=== PATIENT | male | born 1970 | race Caucasian/White ===

== ENCOUNTER 2021-04-17 21:31 | Inpatient (IN) ==
[2021-04-17] MEDS ORDERED: 0.9 % Sodium Chloride 500 ML IVC ONE (21:53)
[2021-04-17 22:55] LABS: Basophils # 0.1 K/mcL (0.0-0.2); Basophils % 0.3 %; Eosinophils % 0.3 %; Hematocrit 41.3 % (37.5-50.1); Hemoglobin 13.9 g/dL (12.9-16.9); Immature Granulocytes % 0.8 % (0-4); Lymphocytes # 1.2 K/mcL (0.6-4.6); Mean Corpuscular HGB Conc 33.7 g/dL (31.6-35.5); Mean Corpuscular Hemoglobin 28.7 pg (28.0-33.3); Mean Corpuscular Volume 85.3 fL (83.0-100.0); Mean Platelet Volume 9.1 fL (9.4-12.4); Monocytes % 6.5 %; Neutrophils # 13.1 K/mcL (1.6-8.9); Platelet Count 357 K/mcL (140-400); Red Blood Count 4.84 M/mcL (4.19-5.50); Red Cell Distribution Width 12.3 % (11.5-14.5); Segmented Neutrophils % 84.1 %; White Blood Count 15.6 K/mcL (4.3-11.1)
[2021-04-17] MEDS ORDERED: Vancomycin 2,000 MG/520 ML IV.SOLN IVPB ONE (23:00)
[2021-04-17] MEDS ORDERED: Piperacillin/Tazobactam 3.375 GM in 0.9 % Sodium Chloride Mini Bag 100 ML IVPB ONE (23:06)
[2021-04-17 23:19] LABS: BUN/Creatinine Ratio 24 (6-26); Blood Urea Nitrogen 20 mg/dL (6-20); Calcium 9.6 mg/dL (8.6-10.3); Carbon Dioxide 26 mEq/L (23-29); Chloride 90 mEq/L (98-107); Glucose 502 mg/dL (70-105); Osmolality,Calculated 291 (280-300); Potassium 4.6 mEq/L (3.5-5.1); Sodium 128 mEq/L (136-145); eGFR For African Americans > 60 (> 60); eGFR For Non-African Americans > 60 (> 60)
[2021-04-17] MEDS ORDERED: 0.9 % Sodium Chloride 1,000 ML IVC ONE (23:19)
[2021-04-17 23:53] LABS: C-Reactive Protein > 300 mg/L (Less than 10)
[2021-04-18] MEDS ORDERED: Insulin Human Regular 10 UNIT in 0.9 % Sodium Chloride 10 ML IV ONE (00:12)
[2021-04-18] MEDS ORDERED: Ondansetron 4 MG/2 ML VIAL IVP PRN (01:22)
[2021-04-18] MEDS ORDERED: Naloxone 0.4 MG/ML INJ IVP PRN (01:22)
[2021-04-18] MEDS: Acetaminophen 325 MG TABLET PO PRN ×2 (01:59→20:55)
[2021-04-18] MEDS: Melatonin 3 MG TABLET PO PRN (01:59)
[2021-04-18] MEDS: 0.9 % Sodium Chloride 1,000 ML IVC SCH ×2 (02:00→09:57)
[2021-04-18] MEDS ORDERED: Dextrose Gel 15 GM/37.5 ML TUBE PO PRN ×2 (03:52)
[2021-04-18] MEDS ORDERED: *HR* Dextrose 50 % in Water (Vial) 50 ML VIAL IVP PRN (03:52)
[2021-04-18] MEDS ORDERED: D5% in Water 1,000 ML IVC PRN (03:52)
[2021-04-18 06:28] LABS: Basophils % 0.3 %; Eosinophils # 0.1 K/mcL (0.0-0.6); Eosinophils % 0.4 %; Hematocrit 37.5 % (37.5-50.1); Hemoglobin 12.4 g/dL (12.9-16.9); Immature Granulocytes % 0.7 % (0-4); Lymphocytes # 1.5 K/mcL (0.6-4.6); Lymphocytes % 11.6 %; Mean Corpuscular HGB Conc 33.1 g/dL (31.6-35.5); Mean Corpuscular Hemoglobin 28.1 pg (28.0-33.3); Mean Corpuscular Volume 84.8 fL (83.0-100.0); Mean Platelet Volume 8.7 fL (9.4-12.4); Monocytes # 1.2 K/mcL (0.0-1.3); Monocytes % 9.3 %; Neutrophils # 10.2 K/mcL (1.6-8.9); Platelet Count 332 K/mcL (140-400); Red Blood Count 4.42 M/mcL (4.19-5.50); Red Cell Distribution Width 12.3 % (11.5-14.5); Segmented Neutrophils % 77.7 %; White Blood Count 13.2 K/mcL (4.3-11.1)
[2021-04-18] MEDS: Insulin LISPRO 300 UNITS/3 ML VIAL SUBQ SCH ×4 (06:33→16:52)
[2021-04-18 07:05] LABS: Alanine Aminotransferase 4 Units/L (7-52); Albumin 3.4 g/dL (3.5-5.7); Alkaline Phosphatase 89 Units/L (34-104); Aspartate Amino Transferase 7 Units/L (13-39); BUN/Creatinine Ratio 23 (6-26); Bilirubin,Total 0.6 mg/dL (0.3-1.0); Blood Urea Nitrogen 18 mg/dL (6-20); Carbon Dioxide 23 mEq/L (23-29); Chloride 96 mEq/L (98-107); Globulin 3.5 g/dL (2.4-3.5); Glucose 335 mg/dL (70-105); Magnesium 1.9 mg/dL (1.6-2.6); Osmolality,Calculated 283 (280-300); Phosphorous 2.7 mg/dL (2.7-4.5); Sodium 129 mEq/L (136-145); Total Protein 6.9 g/dL (6.4-8.9); eGFR For African Americans > 60 (> 60); eGFR For Non-African Americans > 60 (> 60)
[2021-04-18] MEDS: Piperacillin/Tazobactam 3.375 GM in 0.9 % Sodium Chloride Mini Bag 100 ML IVPB SCH ×2 (09:31→15:47)
[2021-04-18 10:49] LABS: Calcium 8.5 mg/dL (8.6-10.3)
[2021-04-18] MEDS ORDERED: Vancomycin 2,000 MG/520 ML IV.SOLN IVPB ONE (12:00)
[2021-04-18] MEDS ORDERED: Morphine Sulfate 2 MG/ML SYRINGE IVP ONE (12:22)
[2021-04-18] MEDS ORDERED: Gadolinium Contrast Agent (WT Based) IV PRN (14:51)
[2021-04-18 15:39] LABS: Estimated Average Glucose 298 mg/dl
[2021-04-18] MEDS: Metoprolol XL (24 HR) Succ 50 MG TAB.ER.24H PO SCH (15:47)
[2021-04-18] MEDS ORDERED: GADOBUTROL 30 MMOL/30 ML VIAL IVP ONE (16:27)
[2021-04-18] MEDS ORDERED: Insulin LISPRO 300 UNITS/3 ML VIAL SUBQ SCH ×2 (16:30)
[2021-04-18 19:20] LABS: Acinetobacter baumannii by PCR Not Detected (Not Detect); Candida albicans by PCR Not Detected (Not Detect); Candida glabrata by PCR Not Detected (Not Detect); Candida krusei by PCR Not Detected (Not Detect); Candida parapsilosis by PCR Not Detected (Not Detect); Candida tropicalis by PCR Not Detected (Not Detect); Enterobacter cloacae Cmplx PCR Not Detected (Not Detect); Enterobacteriaceae by PCR Not Detected (Not Detect); Enterococcus by PCR Not Detected (Not Detect); Escherichia coli by PCR Not Detected (Not Detect); Klebsiella oxytoca by PCR Not Detected (Not Detect); Klebsiella pneumoniae by PCR Not Detected (Not Detect); Proteus by PCR Not Detected (Not Detect); Pseudomonas aeruginosa by PCR Not Detected (Not Detect); Serratia marcescens by PCR Not Detected (Not Detect); Staphylococcus aureus by PCR Not Detected (Not Detect); Staphylococcus by PCR DETECTED (Not Detect); Streptococcus agalactiae(B)PCR Not Detected (Not Detect); Streptococcus by PCR Not Detected (Not Detect); Streptococcus pneumoniae PCR Not Detected (Not Detect); Streptococcus pyogenes (A) PCR Not Detected (Not Detect); mecA Methicillin-Resist Gene DETECTED (Not Detect)
[2021-04-18] MEDS: Pregabalin 50 MG CAPSULE PO SCH (20:56)
[2021-04-18] MEDS ORDERED: Insulin DETEMIR 100 UNIT/ML X5UNITS SUBQ SCH (21:00)
[2021-04-18] MEDS: Budesonide/Formoterol 80/4.5 1 PUFF INH IH SCH (21:48)
[2021-04-19] MEDS: Piperacillin/Tazobactam 3.375 GM in 0.9 % Sodium Chloride Mini Bag 100 ML IVPB SCH ×4 (01:16→23:15)
[2021-04-19] MEDS: Vancomycin 1,500 MG/265 ML IV.SOLN IVPB SCH ×3 (01:17→23:15)
[2021-04-19] MEDS: Insulin LISPRO 300 UNITS/3 ML VIAL SUBQ SCH ×5 (01:17→22:16)
[2021-04-19 05:51] LABS: Hemoglobin 12.9 g/dL (12.9-16.9); Mean Corpuscular HGB Conc 33.1 g/dL (31.6-35.5); Mean Corpuscular Hemoglobin 28.4 pg (28.0-33.3); Mean Corpuscular Volume 85.9 fL (83.0-100.0); Platelet Count 274 K/mcL (140-400); Red Blood Count 4.54 M/mcL (4.19-5.50); Red Cell Distribution Width 12.3 % (11.5-14.5); White Blood Count 11.7 K/mcL (4.3-11.1)
[2021-04-19 07:53] LABS: BUN/Creatinine Ratio 25 (6-26); Blood Urea Nitrogen 22 mg/dL (6-20); Calcium 8.3 mg/dL (8.6-10.3); Carbon Dioxide 23 mEq/L (23-29); Chloride 100 mEq/L (98-107); Glucose 326 mg/dL (70-105); Osmolality,Calculated 288 (280-300); Potassium 3.9 mEq/L (3.5-5.1); Sodium 131 mEq/L (136-145); eGFR For African Americans > 60 (> 60); eGFR For Non-African Americans > 60 (> 60)
[2021-04-19] MEDS: Pregabalin 50 MG CAPSULE PO SCH ×2 (08:31→20:21)
[2021-04-19] MEDS: Metoprolol XL (24 HR) Succ 50 MG TAB.ER.24H PO SCH (08:31)
[2021-04-19] MEDS: Loratadine 10 MG TABLET PO SCH (08:32)
[2021-04-19] MEDS: amLODIPine 5 MG TABLET PO SCH (08:32)
[2021-04-19] MEDS: Insulin DETEMIR 100 UNIT/ML X5UNITS SUBQ SCH ×2 (09:03→20:22)
[2021-04-19] MEDS ORDERED: Perflutren Lipid Microsphere 1.3 ML in 0.9 % Sodium Chloride 8.7 ML IVP PRN (09:24)
[2021-04-19] MEDS ORDERED: *HR* Propofol 200 MG/20 ML VIAL IVP ONE ×2 (09:49→12:26)
[2021-04-19] MEDS ORDERED: Ondansetron 4 MG/2 ML VIAL ONE (09:49)
[2021-04-19] MEDS ORDERED: Lidocaine -MPF 2% 2 ML VIAL ONE (09:49)
[2021-04-19] MEDS ORDERED: *HR* FentaNYL (PF) 100 MCG/2 ML VIAL ONE (09:51)
[2021-04-19] MEDS: Budesonide/Formoterol 80/4.5 1 PUFF INH IH SCH ×2 (10:31→20:05)
[2021-04-19] MEDS ORDERED: *HR* Succinylcholine 200 MG/10 ML VIAL IVP ONE (10:56)
[2021-04-19] MEDS ORDERED: Lidocaine HCL 4 ML Topical Solution (Laryng-O-Jet Kit Sterile Pak) TP ONE (11:04)
[2021-04-19] MEDS ORDERED: Vancomycin 1,000 MG, 0.9 % Sodium Chloride 1,000 ML IR ONE (11:10)
[2021-04-19] MEDS: Acetaminophen 325 MG TABLET PO PRN (20:22)
[2021-04-20 02:12] LABS: Hematocrit 32.2 % (37.5-50.1); Mean Corpuscular HGB Conc 33.5 g/dL (31.6-35.5); Mean Corpuscular Hemoglobin 28.6 pg (28.0-33.3); Mean Corpuscular Volume 85.4 fL (83.0-100.0); Mean Platelet Volume 8.7 fL (9.4-12.4); Platelet Count 366 K/mcL (140-400); Red Blood Count 3.77 M/mcL (4.19-5.50); Red Cell Distribution Width 12.4 % (11.5-14.5); White Blood Count 9.4 K/mcL (4.3-11.1)
[2021-04-20 02:13] LABS: Hemoglobin 10.8 g/dL (12.9-16.9)
[2021-04-20 02:28] LABS: BUN/Creatinine Ratio 26 (6-26); Blood Urea Nitrogen 23 mg/dL (6-20); Calcium 8.5 mg/dL (8.6-10.3); Carbon Dioxide 24 mEq/L (23-29); Chloride 99 mEq/L (98-107); Glucose 282 mg/dL (70-105); Osmolality,Calculated 286 (280-300); Potassium 3.7 mEq/L (3.5-5.1); Sodium 131 mEq/L (136-145); eGFR For African Americans > 60 (> 60); eGFR For Non-African Americans > 60 (> 60)
[2021-04-20] MEDS: Piperacillin/Tazobactam 3.375 GM in 0.9 % Sodium Chloride Mini Bag 100 ML IVPB SCH ×3 (08:44→23:11)
[2021-04-20] MEDS: Pregabalin 50 MG CAPSULE PO SCH ×2 (08:45→20:17)
[2021-04-20] MEDS: Insulin LISPRO 300 UNITS/3 ML VIAL SUBQ SCH ×4 (08:45→20:18)
[2021-04-20] MEDS: Acetaminophen 325 MG TABLET PO PRN (08:45)
[2021-04-20] MEDS: Metoprolol XL (24 HR) Succ 50 MG TAB.ER.24H PO SCH (08:45)
[2021-04-20] MEDS: amLODIPine 5 MG TABLET PO SCH (08:46)
[2021-04-20] MEDS: Loratadine 10 MG TABLET PO SCH (08:46)
[2021-04-20] MEDS: Insulin DETEMIR 100 UNIT/ML X5UNITS SUBQ SCH ×2 (10:08→20:17)
[2021-04-20] MEDS: Vancomycin 1,500 MG/265 ML IV.SOLN IVPB SCH ×2 (12:05→23:11)
[2021-04-20] MEDS: Budesonide/Formoterol 80/4.5 1 PUFF INH IH SCH ×2 (12:06→23:18)
[2021-04-20] MEDS: Sennosides 8.6 MG TABLET PO SCH (16:02)
[2021-04-21] MEDS: Acetaminophen 325 MG TABLET PO PRN ×2 (04:11→10:30)
[2021-04-21 07:47] LABS: Hematocrit 34.2 % (37.5-50.1); Hemoglobin 10.9 g/dL (12.9-16.9); Mean Corpuscular HGB Conc 31.9 g/dL (31.6-35.5); Mean Corpuscular Hemoglobin 27.9 pg (28.0-33.3); Mean Corpuscular Volume 87.5 fL (83.0-100.0); Mean Platelet Volume 8.6 fL (9.4-12.4); Platelet Count 401 K/mcL (140-400); Red Blood Count 3.91 M/mcL (4.19-5.50); Red Cell Distribution Width 12.6 % (11.5-14.5); White Blood Count 7.8 K/mcL (4.3-11.1)
[2021-04-21] MEDS: Budesonide/Formoterol 80/4.5 1 PUFF INH IH SCH ×2 (08:05→20:06)
[2021-04-21 08:29] LABS: BUN/Creatinine Ratio 26 (6-26); Blood Urea Nitrogen 21 mg/dL (6-20); Calcium 8.9 mg/dL (8.6-10.3); Carbon Dioxide 25 mEq/L (23-29); Chloride 101 mEq/L (98-107); Glucose 306 mg/dL (70-105); Osmolality,Calculated 293 (280-300); Potassium 4.1 mEq/L (3.5-5.1); Sodium 134 mEq/L (136-145); eGFR For African Americans > 60 (> 60); eGFR For Non-African Americans > 60 (> 60)
[2021-04-21] MEDS: Metoprolol XL (24 HR) Succ 50 MG TAB.ER.24H PO SCH (08:43)
[2021-04-21] MEDS: Sennosides 8.6 MG TABLET PO SCH (08:43)
[2021-04-21] MEDS: Pregabalin 50 MG CAPSULE PO SCH ×2 (08:43→20:08)
[2021-04-21] MEDS: Piperacillin/Tazobactam 3.375 GM in 0.9 % Sodium Chloride Mini Bag 100 ML IVPB SCH ×3 (08:44→23:47)
[2021-04-21] MEDS: Loratadine 10 MG TABLET PO SCH (08:44)
[2021-04-21] MEDS: amLODIPine 5 MG TABLET PO SCH (08:44)
[2021-04-21] MEDS: Insulin LISPRO 300 UNITS/3 ML VIAL SUBQ SCH ×4 (08:51→20:09)
[2021-04-21] MEDS: Insulin DETEMIR 100 UNIT/ML X5UNITS SUBQ SCH ×2 (10:30→20:08)
[2021-04-21] MEDS: Vancomycin 1,500 MG/265 ML IV.SOLN IVPB SCH ×2 (13:28→23:46)
[2021-04-22] MEDS: Budesonide/Formoterol 80/4.5 1 PUFF INH IH SCH ×2 (07:48→21:39)
[2021-04-22] MEDS ORDERED: Benzonatate 100 MG CAPSULE PO PRN (08:59)
[2021-04-22] MEDS: Metoprolol XL (24 HR) Succ 50 MG TAB.ER.24H PO SCH (09:30)
[2021-04-22] MEDS: amLODIPine 5 MG TABLET PO SCH (09:30)
[2021-04-22] MEDS: Loratadine 10 MG TABLET PO SCH (09:30)
[2021-04-22] MEDS: Sennosides 8.6 MG TABLET PO SCH (09:31)
[2021-04-22] MEDS: Insulin DETEMIR 100 UNIT/ML X5UNITS SUBQ SCH ×2 (09:32→20:37)
[2021-04-22] MEDS: Insulin LISPRO 300 UNITS/3 ML VIAL SUBQ SCH ×4 (09:32→20:37)
[2021-04-22] MEDS: Piperacillin/Tazobactam 3.375 GM in 0.9 % Sodium Chloride Mini Bag 100 ML IVPB SCH ×2 (09:32→16:58)
[2021-04-22] MEDS: Pregabalin 50 MG CAPSULE PO SCH ×2 (09:32→20:37)
[2021-04-22 12:04] LABS: Adenovirus Not Detected (Not Detect); Bordetella Pertussis Not Detected (Not Detect); Chlamydophila pneumoniae Not Detected (Not Detect); Coronavirus 229E Not Detected (Not Detect); Coronavirus HKU1 Not Detected (Not Detect); Coronavirus NL63 Not Detected (Not Detect); Coronavirus OC43 Not Detected (Not Detect); Human Metapneumovirus Not Detected (Not Detect); Human Rhinovirus/Enterovirus Not Detected (Not Detect); Influenza A Subtype 2009 H1 Not Detected (Not Detect); Influenza B Not Detected (Not Detect); Mycoplasma pneumoniae Not Detected (Not Detect); Parainfluenza Virus 1 Not Detected (Not Detect); Parainfluenza Virus 2 Not Detected (Not Detect); Parainfluenza Virus 3 Not Detected (Not Detect); Parainfluenza Virus 4 Not Detected (Not Detect); Respiratory Syncytial Virus Not Detected (Not Detect); SARS-CoV-2 Not Detected (Not Detect)
[2021-04-22 12:04] LABS: Hematocrit 38.4 % (37.5-50.1); Hemoglobin 12.4 g/dL (12.9-16.9); Mean Corpuscular HGB Conc 32.3 g/dL (31.6-35.5); Mean Corpuscular Hemoglobin 28.2 pg (28.0-33.3); Mean Corpuscular Volume 87.3 fL (83.0-100.0); Mean Platelet Volume 8.2 fL (9.4-12.4); Platelet Count 466 K/mcL (140-400); Red Cell Distribution Width 12.7 % (11.5-14.5); White Blood Count 8.3 K/mcL (4.3-11.1)
[2021-04-22 12:57] LABS: BUN/Creatinine Ratio 21 (6-26); Blood Urea Nitrogen 22 mg/dL (6-20); Calcium 9.4 mg/dL (8.6-10.3); Carbon Dioxide 25 mEq/L (23-29); Chloride 100 mEq/L (98-107); Glucose 293 mg/dL (70-105); Osmolality,Calculated 292 (280-300); Potassium 4.4 mEq/L (3.5-5.1); Sodium 134 mEq/L (136-145); eGFR For African Americans > 60 (> 60); eGFR For Non-African Americans > 60 (> 60)
[2021-04-22] MEDS ORDERED: polyethylene glycoL 3350 17 GM POWD.PACK PO ONE (18:00)
[2021-04-22] MEDS: Melatonin 3 MG TABLET PO PRN (20:38)
[2021-04-23] MEDS: Acetaminophen 325 MG TABLET PO PRN ×2 (04:07→20:37)
[2021-04-23 05:25] LABS: Hematocrit 33.1 % (37.5-50.1); Hemoglobin 10.7 g/dL (12.9-16.9); Mean Corpuscular HGB Conc 32.3 g/dL (31.6-35.5); Mean Corpuscular Hemoglobin 28.2 pg (28.0-33.3); Mean Corpuscular Volume 87.1 fL (83.0-100.0); Mean Platelet Volume 8.5 fL (9.4-12.4); Platelet Count 424 K/mcL (140-400); Red Cell Distribution Width 12.7 % (11.5-14.5); White Blood Count 8.8 K/mcL (4.3-11.1)
[2021-04-23 05:27] LABS: BUN/Creatinine Ratio 23 (6-26); Blood Urea Nitrogen 23 mg/dL (6-20); Calcium 8.8 mg/dL (8.6-10.3); Carbon Dioxide 26 mEq/L (23-29); Chloride 100 mEq/L (98-107); Glucose 270 mg/dL (70-105); Osmolality,Calculated 291 (280-300); Potassium 4.4 mEq/L (3.5-5.1); Sodium 134 mEq/L (136-145); eGFR For African Americans > 60 (> 60); eGFR For Non-African Americans > 60 (> 60)
[2021-04-23] MEDS: Budesonide/Formoterol 80/4.5 1 PUFF INH IH SCH ×2 (08:41→21:37)
[2021-04-23] MEDS: Insulin LISPRO 300 UNITS/3 ML VIAL SUBQ SCH ×4 (08:56→20:38)
[2021-04-23] MEDS: Loratadine 10 MG TABLET PO SCH (08:57)
[2021-04-23] MEDS: Sennosides 8.6 MG TABLET PO SCH (08:57)
[2021-04-23] MEDS: amLODIPine 5 MG TABLET PO SCH (08:57)
[2021-04-23] MEDS: Pregabalin 50 MG CAPSULE PO SCH ×2 (08:57→20:36)
[2021-04-23] MEDS: Piperacillin/Tazobactam 3.375 GM in 0.9 % Sodium Chloride Mini Bag 100 ML IVPB SCH ×3 (08:58→16:33)
[2021-04-23] MEDS: Metoprolol XL (24 HR) Succ 50 MG TAB.ER.24H PO SCH (08:58)
[2021-04-23] MEDS: Insulin DETEMIR 100 UNIT/ML X5UNITS SUBQ SCH ×2 (09:04→20:38)
[2021-04-23] MEDS: *HR* Heparin 5,000 UNIT/ML VIAL SQ SCH (16:33)
[2021-04-23] MEDS: Melatonin 3 MG TABLET PO PRN (20:37)
[2021-04-24] MEDS: Piperacillin/Tazobactam 3.375 GM in 0.9 % Sodium Chloride Mini Bag 100 ML IVPB SCH ×4 (00:06→23:25)
[2021-04-24] MEDS: *HR* Heparin 5,000 UNIT/ML VIAL SQ SCH ×2 (05:31→18:18)
[2021-04-24 07:28] LABS: Basophils # 0.1 K/mcL (0.0-0.2); Basophils % 0.8 %; Eosinophils # 0.3 K/mcL (0.0-0.6); Hematocrit 39.2 % (37.5-50.1); Hemoglobin 12.9 g/dL (12.9-16.9); Immature Granulocytes % 1.8 % (0-4); Lymphocytes # 1.5 K/mcL (0.6-4.6); Lymphocytes % 16.7 %; Mean Corpuscular HGB Conc 32.9 g/dL (31.6-35.5); Mean Corpuscular Hemoglobin 28.6 pg (28.0-33.3); Mean Corpuscular Volume 86.9 fL (83.0-100.0); Mean Platelet Volume 8.3 fL (9.4-12.4); Monocytes # 0.6 K/mcL (0.0-1.3); Monocytes % 6.8 %; Neutrophils # 6.2 K/mcL (1.6-8.9); Platelet Count 395 K/mcL (140-400); Red Blood Count 4.51 M/mcL (4.19-5.50); Segmented Neutrophils % 70.9 %; White Blood Count 8.8 K/mcL (4.3-11.1)
[2021-04-24 07:46] LABS: BUN/Creatinine Ratio 21 (6-26); Blood Urea Nitrogen 18 mg/dL (6-20); Carbon Dioxide 29 mEq/L (23-29); Chloride 99 mEq/L (98-107); Glucose 240 mg/dL (70-105); Osmolality,Calculated 290 (280-300); Potassium 4.4 mEq/L (3.5-5.1); Sodium 135 mEq/L (136-145); eGFR For African Americans > 60 (> 60); eGFR For Non-African Americans > 60 (> 60)
[2021-04-24] MEDS: Budesonide/Formoterol 80/4.5 1 PUFF INH IH SCH ×2 (08:22→20:44)
[2021-04-24] MEDS: Insulin LISPRO 300 UNITS/3 ML VIAL SUBQ SCH ×4 (08:40→20:24)
[2021-04-24] MEDS: Pregabalin 50 MG CAPSULE PO SCH ×2 (08:41→20:25)
[2021-04-24] MEDS: Metoprolol XL (24 HR) Succ 50 MG TAB.ER.24H PO SCH (08:41)
[2021-04-24] MEDS: Sennosides 8.6 MG TABLET PO SCH (08:41)
[2021-04-24] MEDS: amLODIPine 5 MG TABLET PO SCH (08:41)
[2021-04-24] MEDS: Loratadine 10 MG TABLET PO SCH (08:42)
[2021-04-24 10:23] LABS: Calcium 9.2 mg/dL (8.6-10.3)
[2021-04-24] MEDS: Insulin DETEMIR 100 UNIT/ML X5UNITS SUBQ SCH ×2 (11:10→20:25)
[2021-04-24] MEDS: Acetaminophen 325 MG TABLET PO PRN (20:28)
[2021-04-25 05:18] LABS: BUN/Creatinine Ratio 20 (6-26); Blood Urea Nitrogen 19 mg/dL (6-20); Calcium 9.6 mg/dL (8.6-10.3); Carbon Dioxide 31 mEq/L (23-29); Chloride 98 mEq/L (98-107); Glucose 169 mg/dL (70-105); Osmolality,Calculated 286 (280-300); Potassium 4.2 mEq/L (3.5-5.1); Sodium 135 mEq/L (136-145); eGFR For African Americans > 60 (> 60); eGFR For Non-African Americans > 60 (> 60)
[2021-04-25] MEDS: *HR* Heparin 5,000 UNIT/ML VIAL SQ SCH ×2 (05:24→17:07)
[2021-04-25] MEDS: Acetaminophen 325 MG TABLET PO PRN (05:25)
[2021-04-25] MEDS: Budesonide/Formoterol 80/4.5 1 PUFF INH IH SCH ×2 (08:01→20:16)
[2021-04-25] MEDS: amLODIPine 5 MG TABLET PO SCH (09:16)
[2021-04-25] MEDS: Piperacillin/Tazobactam 3.375 GM in 0.9 % Sodium Chloride Mini Bag 100 ML IVPB SCH ×2 (09:16→19:28)
[2021-04-25] MEDS: Loratadine 10 MG TABLET PO SCH (09:16)
[2021-04-25] MEDS: Sennosides 8.6 MG TABLET PO SCH (09:16)
[2021-04-25] MEDS: Metoprolol XL (24 HR) Succ 50 MG TAB.ER.24H PO SCH (09:16)
[2021-04-25] MEDS: Pregabalin 50 MG CAPSULE PO SCH ×2 (09:16→21:21)
[2021-04-25] MEDS: Insulin LISPRO 300 UNITS/3 ML VIAL SUBQ SCH ×4 (09:17→21:21)
[2021-04-25] MEDS: Insulin DETEMIR 100 UNIT/ML X5UNITS SUBQ SCH ×2 (09:19→21:23)
[2021-04-25] MEDS ORDERED: Vancomycin 1,500 MG/265 ML IV.SOLN IVPB SCH (18:00)
[2021-04-25] MEDS: Vancomycin 1,250 MG/262.5 ML IV.SOLN IVPB SCH (19:37)
[2021-04-25] MEDS ORDERED: *HR* Labetalol 20 MG/4 ML SYRINGE IVP ONE (20:41)
[2021-04-25] MEDS ORDERED: *HR* Metoprolol 5 MG/5 ML VIAL IVP ONE (23:22)
[2021-04-26] MEDS: Vancomycin 1,250 MG/262.5 ML IV.SOLN IVPB SCH ×2 (05:06→16:45)
[2021-04-26] MEDS: *HR* Heparin 5,000 UNIT/ML VIAL SQ SCH ×2 (05:08→16:46)
[2021-04-26] MEDS: Budesonide/Formoterol 80/4.5 1 PUFF INH IH SCH ×2 (07:22→21:55)
[2021-04-26] MEDS: Insulin LISPRO 300 UNITS/3 ML VIAL SUBQ SCH ×4 (07:55→21:53)
[2021-04-26] MEDS: amLODIPine 5 MG TABLET PO SCH (07:56)
[2021-04-26] MEDS: Pregabalin 50 MG CAPSULE PO SCH ×2 (07:56→22:02)
[2021-04-26] MEDS: Loratadine 10 MG TABLET PO SCH (07:57)
[2021-04-26] MEDS: Metoprolol XL (24 HR) Succ 50 MG TAB.ER.24H PO SCH (07:57)
[2021-04-26] MEDS: Sennosides 8.6 MG TABLET PO SCH (07:57)
[2021-04-26 09:02] LABS: Hematocrit 39.7 % (37.5-50.1); Hemoglobin 12.9 g/dL (12.9-16.9); Mean Corpuscular HGB Conc 32.5 g/dL (31.6-35.5); Mean Corpuscular Hemoglobin 27.9 pg (28.0-33.3); Mean Corpuscular Volume 85.9 fL (83.0-100.0); Mean Platelet Volume 8.2 fL (9.4-12.4); Platelet Count 407 K/mcL (140-400); Red Blood Count 4.62 M/mcL (4.19-5.50); White Blood Count 8.9 K/mcL (4.3-11.1)
[2021-04-26 09:33] LABS: BUN/Creatinine Ratio 27 (6-26); Blood Urea Nitrogen 22 mg/dL (6-20); Calcium 9.1 mg/dL (8.6-10.3); Carbon Dioxide 26 mEq/L (23-29); Chloride 100 mEq/L (98-107); Glucose 211 mg/dL (70-105); Osmolality,Calculated 288 (280-300); Potassium 4.1 mEq/L (3.5-5.1); Sodium 134 mEq/L (136-145); eGFR For African Americans > 60 (> 60); eGFR For Non-African Americans > 60 (> 60)
[2021-04-26] MEDS ORDERED: polyethylene glycoL 3350 17 GM POWD.PACK PO PRN (09:49)
[2021-04-26] MEDS: Insulin DETEMIR 100 UNIT/ML X5UNITS SUBQ SCH ×2 (09:51→22:00)
[2021-04-27 05:42] LABS: Hematocrit 36.2 % (37.5-50.1); Hemoglobin 11.8 g/dL (12.9-16.9); Mean Corpuscular HGB Conc 32.6 g/dL (31.6-35.5); Mean Corpuscular Hemoglobin 28.1 pg (28.0-33.3); Mean Corpuscular Volume 86.2 fL (83.0-100.0); Mean Platelet Volume 8.3 fL (9.4-12.4); Platelet Count 384 K/mcL (140-400); Red Cell Distribution Width 13.2 % (11.5-14.5); White Blood Count 10.2 K/mcL (4.3-11.1)
[2021-04-27 06:05] LABS: BUN/Creatinine Ratio 28 (6-26); Blood Urea Nitrogen 23 mg/dL (6-20); Calcium 9.3 mg/dL (8.6-10.3); Carbon Dioxide 28 mEq/L (23-29); Chloride 100 mEq/L (98-107); Glucose 140 mg/dL (70-105); Osmolality,Calculated 288 (280-300); Potassium 4.1 mEq/L (3.5-5.1); Sodium 136 mEq/L (136-145); Vancomycin,Trough 10 mcg/mL (5-10); eGFR For African Americans > 60 (> 60); eGFR For Non-African Americans > 60 (> 60)
[2021-04-27] MEDS: Metoprolol XL (24 HR) Succ 50 MG TAB.ER.24H PO SCH (07:38)
[2021-04-27] MEDS: Pregabalin 50 MG CAPSULE PO SCH ×2 (07:38→20:01)
[2021-04-27] MEDS: amLODIPine 5 MG TABLET PO SCH (07:39)
[2021-04-27] MEDS: Loratadine 10 MG TABLET PO SCH (07:39)
[2021-04-27] MEDS: Sennosides 8.6 MG TABLET PO SCH (07:39)
[2021-04-27] MEDS: Vancomycin 1,500 MG/265 ML IV.SOLN IVPB SCH ×2 (07:39→20:00)
[2021-04-27] MEDS: *HR* Heparin 5,000 UNIT/ML VIAL SQ SCH ×2 (07:39→17:04)
[2021-04-27] MEDS: polyethylene glycoL 3350 17 GM POWD.PACK PO SCH ×2 (07:41→07:49)
[2021-04-27] MEDS: Insulin LISPRO 300 UNITS/3 ML VIAL SUBQ SCH ×4 (07:48→20:00)
[2021-04-27] MEDS: Insulin DETEMIR 100 UNIT/ML X5UNITS SUBQ SCH ×2 (07:55→20:01)
[2021-04-27] MEDS: Budesonide/Formoterol 80/4.5 1 PUFF INH IH SCH ×2 (10:20→20:31)
[2021-04-27] MEDS ORDERED: Metoclopramide 10 MG/2 ML VIAL IVP ONE (14:48)
[2021-04-27] MEDS ORDERED: Ketorolac 15 MG/ML VIAL IVP ONE (14:52)
[2021-04-27 14:59] LABS: Influenza A PCR Negative (Negative); Influenza B PCR Negative (Negative); Resp. Syncytial Virus PCR Negative (Negative)
[2021-04-27 15:01] LABS: SARS-CoV-2 by PCR (In House) Negative (Negative)
[2021-04-27] MEDS: Vancomycin 1,250 MG/262.5 ML IV.SOLN IVPB SCH (20:14)
[2021-04-28 03:52] LABS: Hematocrit 35.2 % (37.5-50.1); Hemoglobin 11.9 g/dL (12.9-16.9); Mean Corpuscular HGB Conc 33.8 g/dL (31.6-35.5); Mean Corpuscular Hemoglobin 28.8 pg (28.0-33.3); Mean Corpuscular Volume 85.2 fL (83.0-100.0); Mean Platelet Volume 8.5 fL (9.4-12.4); Platelet Count 353 K/mcL (140-400); Red Blood Count 4.13 M/mcL (4.19-5.50); White Blood Count 9.8 K/mcL (4.3-11.1)
[2021-04-28 04:12] LABS: BUN/Creatinine Ratio 23 (6-26); Blood Urea Nitrogen 20 mg/dL (6-20); Calcium 9.1 mg/dL (8.6-10.3); Carbon Dioxide 28 mEq/L (23-29); Chloride 101 mEq/L (98-107); Glucose 209 mg/dL (70-105); Osmolality,Calculated 289 (280-300); Potassium 4.1 mEq/L (3.5-5.1); Sodium 135 mEq/L (136-145); eGFR For African Americans > 60 (> 60); eGFR For Non-African Americans > 60 (> 60)
[2021-04-28] MEDS: *HR* Heparin 5,000 UNIT/ML VIAL SQ SCH (05:19)
[2021-04-28 07:01] VITALS: BP 154/87; PULSE 72; TEMP 98.5; O2SAT 93
[2021-04-28] MEDS: Vancomycin 1,500 MG/265 ML IV.SOLN IVPB SCH (08:10)
[2021-04-28] MEDS: Insulin LISPRO 300 UNITS/3 ML VIAL SUBQ SCH (08:11)
[2021-04-28] MEDS: Insulin DETEMIR 100 UNIT/ML X5UNITS SUBQ SCH (08:11)
[2021-04-28] MEDS: Sennosides 8.6 MG TABLET PO SCH (08:12)
[2021-04-28] MEDS: Metoprolol XL (24 HR) Succ 50 MG TAB.ER.24H PO SCH (08:12)
[2021-04-28] MEDS: Pregabalin 50 MG CAPSULE PO SCH (08:12)
[2021-04-28] MEDS: Loratadine 10 MG TABLET PO SCH (08:12)
[2021-04-28] MEDS: polyethylene glycoL 3350 17 GM POWD.PACK PO SCH (08:13)
[2021-04-28] MEDS: amLODIPine 5 MG TABLET PO SCH (08:13)
[2021-04-28] MEDS: Budesonide/Formoterol 80/4.5 1 PUFF INH IH SCH (08:34)
== END 2021-04-28 11:01 | DRG 710 ==
LOC: 3ANU 21:31 → EMEROOARM 21:31 → SUATTDRO 23:51 → 3ANU 04-18 00:38 → 3BNU 04-19 21:59 → SUATTDRO 04-20 19:35
PROVIDERS: ADMIT Internal Medicine; ATTEND Internal Medicine

== ENCOUNTER 2021-06-06 14:29 | Observation (INO) ==
[2021-06-06 15:04] LABS: Basophils # 0.1 K/mcL (0.0-0.2); Basophils % 0.5 %; Eosinophils # 0.2 K/mcL (0.0-0.6); Eosinophils % 1.7 %; Hematocrit 37.1 % (37.5-50.1); Hemoglobin 12.2 g/dL (12.9-16.9); Immature Granulocytes % 0.4 % (0-4); Lymphocytes # 1.8 K/mcL (0.6-4.6); Lymphocytes % 16.4 %; Mean Corpuscular HGB Conc 32.9 g/dL (31.6-35.5); Mean Corpuscular Hemoglobin 27.8 pg (28.0-33.3); Mean Corpuscular Volume 84.5 fL (83.0-100.0); Mean Platelet Volume 8.8 fL (9.4-12.4); Monocytes # 0.7 K/mcL (0.0-1.3); Neutrophils # 8.5 K/mcL (1.6-8.9); Platelet Count 317 K/mcL (140-400); Red Blood Count 4.39 M/mcL (4.19-5.50); Red Cell Distribution Width 13.5 % (11.5-14.5); White Blood Count 11.3 K/mcL (4.3-11.1)
[2021-06-06 15:27] LABS: BUN/Creatinine Ratio 23 (6-26); Blood Urea Nitrogen 20 mg/dL (6-20); Calcium 9.4 mg/dL (8.6-10.3); Carbon Dioxide 26 mEq/L (23-29); Chloride 104 mEq/L (98-107); Glucose 150 mg/dL (70-105); Osmolality,Calculated 289 (280-300); Potassium 4.5 mEq/L (3.5-5.1); Sodium 137 mEq/L (136-145); eGFR For African Americans > 60 (> 60); eGFR For Non-African Americans > 60 (> 60)
[2021-06-06 17:55] LABS: C-Reactive Protein 26 mg/L (Less than 10)
[2021-06-06] MEDS ORDERED: Piperacillin/Tazobactam 3.375 GM in 0.9 % Sodium Chloride Mini Bag 100 ML IVPB ONE (19:14)
[2021-06-06] MEDS ORDERED: Vancomycin 2,000 MG/520 ML IV.SOLN IVPB ONE (19:30)
[2021-06-06] MEDS ORDERED: Gadolinium Contrast Agent (WT Based) IV PRN (19:49)
[2021-06-06] MEDS ORDERED: Dextrose Gel 15 GM/37.5 ML TUBE PO PRN ×2 (21:45)
[2021-06-06] MEDS ORDERED: *HR* Dextrose 50 % in Water (Syg) 50 ML SYRINGE IVP PRN (21:45)
[2021-06-06] MEDS ORDERED: D5% in Water 1,000 ML IVC PRN (21:45)
[2021-06-06] MEDS ORDERED: Acetaminophen 325 MG TABLET PO PRN (21:47)
[2021-06-06] MEDS ORDERED: Ondansetron 4 MG/2 ML VIAL IVP PRN (21:47)
[2021-06-06] MEDS ORDERED: Naloxone 0.4 MG/ML INJ IVP PRN (21:47)
[2021-06-06] MEDS ORDERED: 0.9 % Sodium Chloride 1,000 ML IVC SCH (22:00)
[2021-06-06 22:45] LABS: Influenza A PCR Negative (Negative); Influenza B PCR Negative (Negative); Resp. Syncytial Virus PCR Negative (Negative)
[2021-06-06 23:34] LABS: SARS-CoV-2 by PCR (In House) Negative (Negative)
[2021-06-07] MEDS: Insulin LISPRO 300 UNITS/3 ML VIAL SUBQ SCH ×5 (02:10→23:53)
[2021-06-07 05:22] LABS: Hematocrit 37.6 % (37.5-50.1); Hemoglobin 12.3 g/dL (12.9-16.9); Mean Corpuscular HGB Conc 32.7 g/dL (31.6-35.5); Mean Corpuscular Hemoglobin 27.4 pg (28.0-33.3); Mean Corpuscular Volume 83.7 fL (83.0-100.0); Mean Platelet Volume 8.2 fL (9.4-12.4); Platelet Count 257 K/mcL (140-400); Red Blood Count 4.49 M/mcL (4.19-5.50); Red Cell Distribution Width 13.5 % (11.5-14.5); White Blood Count 7.5 K/mcL (4.3-11.1)
[2021-06-07 05:47] LABS: BUN/Creatinine Ratio 20 (6-26); Blood Urea Nitrogen 18 mg/dL (6-20); Calcium 9.2 mg/dL (8.6-10.3); Carbon Dioxide 28 mEq/L (23-29); Chloride 104 mEq/L (98-107); Chol/HDL Ratio 6.1 (0-4.9); Cholesterol 172 mg/dL (< 200); Glucose 107 mg/dL (70-105); HDL Cholesterol 28 mg/dL (40-59); LDL Cholesterol,Calculated 112 mg/dL (< 100); Magnesium 1.9 mg/dL (1.6-2.6); Osmolality,Calculated 288 (280-300); Potassium 3.8 mEq/L (3.5-5.1); Sodium 138 mEq/L (136-145); Triglycerides 158 mg/dL (< 150); eGFR For African Americans > 60 (> 60); eGFR For Non-African Americans > 60 (> 60)
[2021-06-07 05:48] LABS: Iron 40 mcg/dL (65-175)
[2021-06-07 05:58] LABS: Estimated Average Glucose 183 mg/dl
[2021-06-07 06:01] LABS: Ferritin 149 ng/mL (20-250)
[2021-06-07 06:08] LABS: Folate 21.5 ng/mL (3.0-16.0)
[2021-06-07 06:13] LABS: Bilirubin,Urine Negative (Negative); Blood,Urine Negative (Negative); Clarity,Urine Clear (Clear); Color,Urine Light-Yellow (Yellow); Glucose,Urine (UA) Normal (Normal); Ketones,Urine Negative (Negative); Leukocyte Esterase,Urine Negative (Negative); Nitrite,Urine Negative (Negative); PH,Urine 5.5 pH Units (5.0-8.0); Protein,Urine Negative (Neg-Trace); Urobilinogen,Urine Normal (Normal)
[2021-06-07] MEDS: Piperacillin/Tazobactam 3.375 GM in 0.9 % Sodium Chloride Mini Bag 100 ML IVPB SCH ×4 (06:27→23:53)
[2021-06-07] MEDS: Vancomycin 1,500 MG/265 ML IV.SOLN IVPB SCH ×2 (09:30→19:23)
[2021-06-07] MEDS ORDERED: GADOBUTROL 30 MMOL/30 ML VIAL IVP ONE (11:47)
[2021-06-07] MEDS: amLODIPine 5 MG TABLET PO SCH (19:20)
[2021-06-07] MEDS: *HR* Heparin 5,000 UNIT/ML VIAL SQ SCH (19:20)
[2021-06-08 03:22] LABS: % Iron Saturation 13 % (20-55); Transferrin 222 mg/dL (203-362)
[2021-06-08] MEDS: Insulin LISPRO 300 UNITS/3 ML VIAL SUBQ SCH ×4 (05:59→17:36)
[2021-06-08] MEDS: *HR* Heparin 5,000 UNIT/ML VIAL SQ SCH ×2 (05:59→18:17)
[2021-06-08 08:00] LABS: Hematocrit 38.3 % (37.5-50.1); Mean Corpuscular HGB Conc 33.9 g/dL (31.6-35.5); Mean Corpuscular Hemoglobin 28.3 pg (28.0-33.3); Mean Corpuscular Volume 83.4 fL (83.0-100.0); Mean Platelet Volume 8.6 fL (9.4-12.4); Platelet Count 267 K/mcL (140-400); Red Blood Count 4.59 M/mcL (4.19-5.50); Red Cell Distribution Width 13.4 % (11.5-14.5); White Blood Count 7.3 K/mcL (4.3-11.1)
[2021-06-08] MEDS: amLODIPine 5 MG TABLET PO SCH (08:38)
[2021-06-08 08:43] LABS: Folate 22.2 ng/mL (3.0-16.0)
[2021-06-08] MEDS: Piperacillin/Tazobactam 3.375 GM in 0.9 % Sodium Chloride Mini Bag 100 ML IVPB SCH (08:58)
[2021-06-08 10:28] LABS: BUN/Creatinine Ratio 19 (6-26); Blood Urea Nitrogen 16 mg/dL (6-20); Calcium 9.3 mg/dL (8.6-10.3); Carbon Dioxide 24 mEq/L (23-29); Chloride 104 mEq/L (98-107); Glucose 142 mg/dL (70-105); Osmolality,Calculated 286 (280-300); Potassium 4.3 mEq/L (3.5-5.1); Sodium 136 mEq/L (136-145); eGFR For African Americans > 60 (> 60); eGFR For Non-African Americans > 60 (> 60)
[2021-06-08] MEDS: Vancomycin 1,500 MG/265 ML IV.SOLN IVPB SCH (11:33)
[2021-06-08] MEDS ORDERED: Fluticasone Propionate Nasal 50 MCG/SPRAY BOTTLE NS PRN (12:24)
[2021-06-08] MEDS: Metoprolol XL (24 HR) Succ 50 MG TAB.ER.24H PO SCH (13:40)
[2021-06-08] MEDS: Pregabalin 50 MG CAPSULE PO SCH (19:19)
[2021-06-08] MEDS: Budesonide/Formoterol 80/4.5 1 PUFF INH IH SCH (19:42)
[2021-06-08] MEDS ORDERED: Melatonin 3 MG TABLET PO SCH (21:00)
[2021-06-09] MEDS: *HR* Heparin 5,000 UNIT/ML VIAL SQ SCH (05:23)
[2021-06-09] MEDS: Budesonide/Formoterol 80/4.5 1 PUFF INH IH SCH (07:12)
[2021-06-09] MEDS: Insulin LISPRO 300 UNITS/3 ML VIAL SUBQ SCH ×3 (07:55→16:38)
[2021-06-09] MEDS: amLODIPine 5 MG TABLET PO SCH (08:02)
[2021-06-09] MEDS: Pregabalin 50 MG CAPSULE PO SCH (08:03)
[2021-06-09] MEDS: Metoprolol XL (24 HR) Succ 50 MG TAB.ER.24H PO SCH (08:04)
[2021-06-09] MEDS ORDERED: Loratadine 10 MG TABLET PO SCH (09:00)
[2021-06-09 10:35] VITALS: BP 149/85; PULSE 76; TEMP 97.9; O2SAT 94
== END 2021-06-09 19:06 ==
LOC: EMEROOARM 14:29 → 3BNU 14:29 → SUATTDRO 20:01 → 3BNU 21:31
PROVIDERS: ADMIT Internal Medicine; ATTEND Internal Medicine

== ENCOUNTER 2021-06-28 12:22 | Inpatient (IN) ==
[2021-06-28] MEDS ORDERED: Melatonin 3 MG TABLET PO PRN (14:41)
[2021-06-28] MEDS ORDERED: Ondansetron 4 MG/2 ML VIAL IVP PRN (14:41)
[2021-06-28] MEDS ORDERED: Acetaminophen 325 MG TABLET PO PRN (14:41)
[2021-06-28] MEDS ORDERED: *HR* Dextrose 50 % in Water (Syg) 50 ML SYRINGE IVP PRN (14:43)
[2021-06-28] MEDS ORDERED: D5% in Water 1,000 ML IVC PRN (14:43)
[2021-06-28] MEDS ORDERED: Dextrose Gel 15 GM/37.5 ML TUBE PO PRN ×2 (14:43)
[2021-06-28] MEDS ORDERED: Gadolinium Contrast Agent (WT Based) IV PRN (14:54)
[2021-06-28] MEDS ORDERED: Vancomycin 2,000 MG/520 ML IV.SOLN IVPB ONE (15:00)
[2021-06-28] MEDS: Piperacillin/Tazobactam 3.375 GM in 0.9 % Sodium Chloride Mini Bag 100 ML IVPB SCH (17:25)
[2021-06-28] MEDS: *HR* Heparin 5,000 UNIT/ML VIAL SQ SCH (17:37)
[2021-06-28] MEDS: Insulin LISPRO 300 UNITS/3 ML VIAL SUBQ SCH ×2 (17:37→21:39)
[2021-06-28] MEDS: Budesonide/Formoterol 80/4.5 1 PUFF INH IH SCH (19:50)
[2021-06-28] MEDS: Insulin DETEMIR 100 UNIT/ML X5UNITS SUBQ SCH (21:31)
[2021-06-28] MEDS: Pregabalin 50 MG CAPSULE PO SCH (21:31)
[2021-06-29] MEDS: Piperacillin/Tazobactam 3.375 GM in 0.9 % Sodium Chloride Mini Bag 100 ML IVPB SCH ×4 (00:45→23:21)
[2021-06-29] MEDS: Vancomycin 1,500 MG/265 ML IV.SOLN IVPB SCH ×2 (04:28→18:00)
[2021-06-29 05:42] LABS: Hematocrit 35.2 % (37.5-50.1); Hemoglobin 11.7 g/dL (12.9-16.9); Mean Corpuscular HGB Conc 33.2 g/dL (31.6-35.5); Mean Corpuscular Hemoglobin 27.6 pg (28.0-33.3); Mean Platelet Volume 9.1 fL (9.4-12.4); Platelet Count 285 K/mcL (140-400); Red Blood Count 4.24 M/mcL (4.19-5.50); Red Cell Distribution Width 13.7 % (11.5-14.5); White Blood Count 7.2 K/mcL (4.3-11.1)
[2021-06-29 05:50] LABS: INR 1.1; Prothrombin Time 12.2 Seconds (9.4-12.1)
[2021-06-29 05:56] LABS: BUN/Creatinine Ratio 21 (6-26); Blood Urea Nitrogen 16 mg/dL (6-20); Calcium 9.1 mg/dL (8.6-10.3); Carbon Dioxide 28 mEq/L (23-29); Chloride 102 mEq/L (98-107); Glucose 181 mg/dL (70-105); Magnesium 1.7 mg/dL (1.6-2.6); Osmolality,Calculated 290 (280-300); Phosphorous 3.8 mg/dL (2.7-4.5); Potassium 3.7 mEq/L (3.5-5.1); Sodium 137 mEq/L (136-145); eGFR For African Americans > 60 (> 60); eGFR For Non-African Americans > 60 (> 60)
[2021-06-29] MEDS: *HR* Heparin 5,000 UNIT/ML VIAL SQ SCH ×2 (06:27→18:00)
[2021-06-29] MEDS: Budesonide/Formoterol 80/4.5 1 PUFF INH IH SCH ×2 (07:23→20:36)
[2021-06-29] MEDS: Insulin LISPRO 300 UNITS/3 ML VIAL SUBQ SCH ×4 (09:56→20:10)
[2021-06-29] MEDS: Pregabalin 50 MG CAPSULE PO SCH ×2 (09:56→20:08)
[2021-06-29] MEDS: amLODIPine 5 MG TABLET PO SCH (09:57)
[2021-06-29] MEDS: Metoprolol XL (24 HR) Succ 50 MG TAB.ER.24H PO SCH (09:57)
[2021-06-29] MEDS: Insulin DETEMIR 100 UNIT/ML X5UNITS SUBQ SCH ×2 (09:58→20:15)
[2021-06-29 10:02] LABS: Estimated Average Glucose 177 mg/dl; Hemoglobin A1C 7.8 %
[2021-06-29] MEDS ORDERED: 0.9 % Sodium Chloride 1,000 ML ONE ×2 (12:38→12:58)
[2021-06-29] MEDS ORDERED: *HR* Heparin 10,000 UNIT/10 ML VIAL ONE (12:38)
[2021-06-29] MEDS ORDERED: Heparin 1,000 UNITS/500 mL 500 ML ONE (12:39)
[2021-06-29] MEDS ORDERED: *HR* Midazolam HCl 2 MG/2 ML VIAL ONE (13:00)
[2021-06-29] MEDS ORDERED: *HR* Labetalol 100 MG/20 ML MDV ONE (13:59)
[2021-06-30] MEDS: Vancomycin 1,500 MG/265 ML IV.SOLN IVPB SCH (04:43)
[2021-06-30] MEDS: *HR* Heparin 5,000 UNIT/ML VIAL SQ SCH ×2 (04:43→17:08)
[2021-06-30 06:15] LABS: Basophils # 0.1 K/mcL (0.0-0.2); Basophils % 0.7 %; Eosinophils # 0.3 K/mcL (0.0-0.6); Eosinophils % 4.1 %; Hematocrit 35.1 % (37.5-50.1); Hemoglobin 11.7 g/dL (12.9-16.9); Immature Granulocytes % 0.6 % (0-4); Lymphocytes # 1.3 K/mcL (0.6-4.6); Lymphocytes % 18.5 %; Mean Corpuscular HGB Conc 33.3 g/dL (31.6-35.5); Mean Corpuscular Hemoglobin 27.9 pg (28.0-33.3); Mean Corpuscular Volume 83.6 fL (83.0-100.0); Mean Platelet Volume 8.7 fL (9.4-12.4); Monocytes # 0.5 K/mcL (0.0-1.3); Monocytes % 7.3 %; Neutrophils # 4.8 K/mcL (1.6-8.9); Platelet Count 284 K/mcL (140-400); Red Cell Distribution Width 13.7 % (11.5-14.5); Segmented Neutrophils % 68.8 %
[2021-06-30 06:45] LABS: BUN/Creatinine Ratio 21 (6-26); Blood Urea Nitrogen 18 mg/dL (6-20); Carbon Dioxide 30 mEq/L (23-29); Chloride 102 mEq/L (98-107); Glucose 103 mg/dL (70-105); Osmolality,Calculated 286 (280-300); Potassium 3.9 mEq/L (3.5-5.1); Sodium 137 mEq/L (136-145); Vancomycin,Trough 13 mcg/mL (5-10); eGFR For African Americans > 60 (> 60); eGFR For Non-African Americans > 60 (> 60)
[2021-06-30] MEDS: Budesonide/Formoterol 80/4.5 1 PUFF INH IH SCH ×2 (07:42→22:46)
[2021-06-30] MEDS: Metoprolol XL (24 HR) Succ 50 MG TAB.ER.24H PO SCH (09:40)
[2021-06-30] MEDS: Pregabalin 50 MG CAPSULE PO SCH ×2 (09:41→21:04)
[2021-06-30] MEDS: Piperacillin/Tazobactam 3.375 GM in 0.9 % Sodium Chloride Mini Bag 100 ML IVPB SCH ×3 (09:41→23:58)
[2021-06-30] MEDS: amLODIPine 5 MG TABLET PO SCH (09:41)
[2021-06-30] MEDS: Insulin DETEMIR 100 UNIT/ML X5UNITS SUBQ SCH ×2 (09:42→21:04)
[2021-06-30] MEDS: Insulin LISPRO 300 UNITS/3 ML VIAL SUBQ SCH ×4 (13:24→21:05)
[2021-07-01 03:09] LABS: Basophils % 0.5 %; Eosinophils # 0.3 K/mcL (0.0-0.6); Eosinophils % 3.5 %; Hematocrit 33.5 % (37.5-50.1); Immature Granulocytes % 0.5 % (0-4); Lymphocytes % 26.8 %; Mean Corpuscular HGB Conc 32.8 g/dL (31.6-35.5); Mean Corpuscular Hemoglobin 27.4 pg (28.0-33.3); Mean Corpuscular Volume 83.3 fL (83.0-100.0); Mean Platelet Volume 8.8 fL (9.4-12.4); Monocytes # 0.6 K/mcL (0.0-1.3); Neutrophils # 4.5 K/mcL (1.6-8.9); Platelet Count 282 K/mcL (140-400); Red Blood Count 4.02 M/mcL (4.19-5.50); Red Cell Distribution Width 13.7 % (11.5-14.5); Segmented Neutrophils % 60.7 %; White Blood Count 7.4 K/mcL (4.3-11.1)
[2021-07-01 03:28] LABS: BUN/Creatinine Ratio 27 (6-26); Blood Urea Nitrogen 27 mg/dL (6-20); Calcium 9.1 mg/dL (8.6-10.3); Carbon Dioxide 28 mEq/L (23-29); Chloride 102 mEq/L (98-107); Glucose 231 mg/dL (70-105); Osmolality,Calculated 294 (280-300); Sodium 136 mEq/L (136-145); eGFR For African Americans > 60 (> 60); eGFR For Non-African Americans > 60 (> 60)
[2021-07-01] MEDS: *HR* Heparin 5,000 UNIT/ML VIAL SQ SCH (05:43)
[2021-07-01] MEDS: Budesonide/Formoterol 80/4.5 1 PUFF INH IH SCH ×2 (07:35→20:43)
[2021-07-01] MEDS: Pregabalin 50 MG CAPSULE PO SCH ×2 (08:59→20:47)
[2021-07-01] MEDS: Piperacillin/Tazobactam 3.375 GM in 0.9 % Sodium Chloride Mini Bag 100 ML IVPB SCH ×3 (08:59→23:55)
[2021-07-01] MEDS: Metoprolol XL (24 HR) Succ 50 MG TAB.ER.24H PO SCH (09:00)
[2021-07-01] MEDS: amLODIPine 5 MG TABLET PO SCH (09:00)
[2021-07-01] MEDS: Insulin DETEMIR 100 UNIT/ML X5UNITS SUBQ SCH ×2 (09:00→20:57)
[2021-07-01] MEDS: Insulin LISPRO 300 UNITS/3 ML VIAL SUBQ SCH ×4 (10:00→20:47)
[2021-07-01] MEDS ORDERED: *HR* Succinylcholine 200 MG/10 ML VIAL IVP ONE (14:05)
[2021-07-01] MEDS ORDERED: *HR* Midazolam HCl 2 MG/2 ML VIAL ONE (14:05)
[2021-07-01] MEDS ORDERED: *HR* FentaNYL (PF) 100 MCG/2 ML VIAL ONE (14:05)
[2021-07-01] MEDS ORDERED: Ondansetron 4 MG/2 ML VIAL ONE (14:05)
[2021-07-01] MEDS ORDERED: Lidocaine -MPF 2% 5 ML VIAL ONE (14:05)
[2021-07-01] MEDS ORDERED: *HR* Propofol 200 MG/20 ML VIAL IVP ONE (14:05)
[2021-07-01] MEDS ORDERED: Acetaminophen IV 1,000 MG/100 ML BAG IVPB PRN (14:23)
[2021-07-01] MEDS ORDERED: Famotidine 20 MG/2 ML VIAL IVP ONE (14:23)
[2021-07-01] MEDS ORDERED: *HR* HYDROmorphone PF 0.5 MG/0.5 ML SYRINGE IVP PRN (14:23)
[2021-07-01] MEDS ORDERED: Metoclopramide 10 MG in 0.9 % Sodium Chloride 50 ML IVPB ONE (14:30)
[2021-07-01] MEDS ORDERED: Ringers Solution, Lactated 1,000 ML IVC SCH (14:30)
[2021-07-01] MEDS ORDERED: Metoclopramide 10 MG/2 ML VIAL IVP ONE (14:47)
[2021-07-01] MEDS ORDERED: Lidocaine 1% 20 ML MDV ONE (15:18)
[2021-07-01] MEDS ORDERED: Melatonin 3 MG TABLET PO PRN (18:12)
[2021-07-01] MEDS ORDERED: Dextrose Gel 15 GM/37.5 ML TUBE PO PRN ×2 (18:12)
[2021-07-01] MEDS ORDERED: D5% in Water 1,000 ML IVC PRN (18:12)
[2021-07-01] MEDS ORDERED: *HR* Dextrose 50 % in Water (Syg) 50 ML SYRINGE IVP PRN (18:12)
[2021-07-01] MEDS ORDERED: Ondansetron 4 MG/2 ML VIAL IVP PRN (18:12)
[2021-07-01] MEDS: Ringers Solution, Lactated 1,000 ML IVC SCH (20:49)
[2021-07-02 03:49] LABS: Basophils % 0.1 %; Hematocrit 32.7 % (37.5-50.1); Hemoglobin 11.2 g/dL (12.9-16.9); Immature Granulocytes % 0.4 % (0-4); Lymphocytes % 10.5 %; Mean Corpuscular HGB Conc 34.3 g/dL (31.6-35.5); Mean Corpuscular Volume 81.8 fL (83.0-100.0); Mean Platelet Volume 8.9 fL (9.4-12.4); Monocytes # 0.2 K/mcL (0.0-1.3); Monocytes % 2.6 %; Neutrophils # 8.1 K/mcL (1.6-8.9); Platelet Count 307 K/mcL (140-400); Red Cell Distribution Width 13.4 % (11.5-14.5); Segmented Neutrophils % 86.4 %; White Blood Count 9.4 K/mcL (4.3-11.1)
[2021-07-02 03:54] LABS: BUN/Creatinine Ratio 23 (6-26); Blood Urea Nitrogen 21 mg/dL (6-20); Calcium 8.8 mg/dL (8.6-10.3); Carbon Dioxide 24 mEq/L (23-29); Chloride 104 mEq/L (98-107); Glucose 308 mg/dL (70-105); Osmolality,Calculated 299 (280-300); Potassium 4.6 mEq/L (3.5-5.1); Sodium 137 mEq/L (136-145); eGFR For African Americans > 60 (> 60); eGFR For Non-African Americans > 60 (> 60)
[2021-07-02] MEDS: *HR* Heparin 5,000 UNIT/ML VIAL SQ SCH ×3 (05:13→17:02)
[2021-07-02] MEDS: Acetaminophen 325 MG TABLET PO PRN (05:15)
[2021-07-02] MEDS: Budesonide/Formoterol 80/4.5 1 PUFF INH IH SCH ×2 (07:42→20:24)
[2021-07-02] MEDS: Piperacillin/Tazobactam 3.375 GM in 0.9 % Sodium Chloride Mini Bag 100 ML IVPB SCH ×2 (09:08→17:01)
[2021-07-02] MEDS: Insulin LISPRO 300 UNITS/3 ML VIAL SUBQ SCH ×4 (09:09→20:03)
[2021-07-02] MEDS: Insulin DETEMIR 100 UNIT/ML X5UNITS SUBQ SCH ×2 (09:09→22:21)
[2021-07-02] MEDS: Pregabalin 50 MG CAPSULE PO SCH ×2 (09:11→20:03)
[2021-07-02] MEDS: Metoprolol XL (24 HR) Succ 50 MG TAB.ER.24H PO SCH (09:11)
[2021-07-02] MEDS: amLODIPine 5 MG TABLET PO SCH (09:11)
[2021-07-02] MEDS: Ringers Solution, Lactated 1,000 ML IVC SCH (22:21)
[2021-07-03] MEDS: Piperacillin/Tazobactam 3.375 GM in 0.9 % Sodium Chloride Mini Bag 100 ML IVPB SCH ×4 (00:15→23:57)
[2021-07-03] MEDS: *HR* Heparin 5,000 UNIT/ML VIAL SQ SCH ×2 (05:37→16:49)
[2021-07-03] MEDS: Budesonide/Formoterol 80/4.5 1 PUFF INH IH SCH (07:22)
[2021-07-03] MEDS: Insulin LISPRO 300 UNITS/3 ML VIAL SUBQ SCH ×4 (08:39→21:11)
[2021-07-03] MEDS: Pregabalin 50 MG CAPSULE PO SCH ×2 (08:56→21:11)
[2021-07-03] MEDS: Metoprolol XL (24 HR) Succ 50 MG TAB.ER.24H PO SCH (08:56)
[2021-07-03] MEDS: amLODIPine 5 MG TABLET PO SCH (08:56)
[2021-07-03] MEDS: Insulin DETEMIR 100 UNIT/ML X5UNITS SUBQ SCH ×2 (08:56→21:11)
[2021-07-04] MEDS: Budesonide/Formoterol 80/4.5 1 PUFF INH IH SCH ×3 (00:13→20:21)
[2021-07-04] MEDS: *HR* Heparin 5,000 UNIT/ML VIAL SQ SCH ×2 (05:43→16:32)
[2021-07-04 07:46] LABS: Basophils # 0.1 K/mcL (0.0-0.2); Basophils % 0.6 %; Eosinophils # 0.2 K/mcL (0.0-0.6); Eosinophils % 2.2 %; Hematocrit 33.4 % (37.5-50.1); Hemoglobin 11.1 g/dL (12.9-16.9); Immature Granulocytes % 1.1 % (0-4); Lymphocytes # 2.5 K/mcL (0.6-4.6); Lymphocytes % 30.5 %; Mean Corpuscular HGB Conc 33.2 g/dL (31.6-35.5); Mean Corpuscular Hemoglobin 27.5 pg (28.0-33.3); Mean Corpuscular Volume 82.9 fL (83.0-100.0); Mean Platelet Volume 8.8 fL (9.4-12.4); Monocytes # 0.5 K/mcL (0.0-1.3); Monocytes % 6.6 %; Neutrophils # 4.8 K/mcL (1.6-8.9); Platelet Count 280 K/mcL (140-400); Red Blood Count 4.03 M/mcL (4.19-5.50); Red Cell Distribution Width 13.8 % (11.5-14.5); White Blood Count 8.2 K/mcL (4.3-11.1)
[2021-07-04] MEDS: Insulin LISPRO 300 UNITS/3 ML VIAL SUBQ SCH ×4 (07:48→20:02)
[2021-07-04] MEDS: Metoprolol XL (24 HR) Succ 50 MG TAB.ER.24H PO SCH (07:49)
[2021-07-04] MEDS: Insulin DETEMIR 100 UNIT/ML X5UNITS SUBQ SCH ×2 (07:49→20:12)
[2021-07-04] MEDS: amLODIPine 5 MG TABLET PO SCH (07:49)
[2021-07-04] MEDS: Pregabalin 50 MG CAPSULE PO SCH ×2 (07:49→20:11)
[2021-07-04] MEDS: Ringers Solution, Lactated 1,000 ML IVC SCH ×2 (08:10→18:23)
[2021-07-04] MEDS: Piperacillin/Tazobactam 3.375 GM in 0.9 % Sodium Chloride Mini Bag 100 ML IVPB SCH ×3 (08:12→23:58)
[2021-07-04 08:34] LABS: BUN/Creatinine Ratio 36 (6-26); Blood Urea Nitrogen 27 mg/dL (6-20); Calcium 9.1 mg/dL (8.6-10.3); Carbon Dioxide 26 mEq/L (23-29); Chloride 106 mEq/L (98-107); Glucose 150 mg/dL (70-105); Osmolality,Calculated 294 (280-300); Potassium 3.8 mEq/L (3.5-5.1); Sodium 138 mEq/L (136-145); eGFR For African Americans > 60 (> 60); eGFR For Non-African Americans > 60 (> 60)
[2021-07-04] MEDS: polyethylene glycoL 3350 17 GM POWD.PACK PO SCH (14:30)
[2021-07-04] MEDS: Acetaminophen 325 MG TABLET PO PRN (22:23)
[2021-07-05] MEDS: *HR* Heparin 5,000 UNIT/ML VIAL SQ SCH ×2 (03:42→16:16)
[2021-07-05] MEDS: Insulin LISPRO 300 UNITS/3 ML VIAL SUBQ SCH ×4 (07:14→20:35)
[2021-07-05] MEDS: Insulin DETEMIR 100 UNIT/ML X5UNITS SUBQ SCH ×2 (07:14→20:40)
[2021-07-05] MEDS: polyethylene glycoL 3350 17 GM POWD.PACK PO SCH (07:14)
[2021-07-05] MEDS: Piperacillin/Tazobactam 3.375 GM in 0.9 % Sodium Chloride Mini Bag 100 ML IVPB SCH ×2 (07:14→16:16)
[2021-07-05] MEDS: Pregabalin 50 MG CAPSULE PO SCH ×2 (07:15→20:35)
[2021-07-05] MEDS: amLODIPine 5 MG TABLET PO SCH (07:15)
[2021-07-05] MEDS: Metoprolol XL (24 HR) Succ 50 MG TAB.ER.24H PO SCH (07:15)
[2021-07-05] MEDS: Acetaminophen 325 MG TABLET PO PRN (07:16)
[2021-07-05] MEDS: Budesonide/Formoterol 80/4.5 1 PUFF INH IH SCH ×2 (07:39→20:33)
[2021-07-05] MEDS: Ringers Solution, Lactated 1,000 ML IVC SCH (20:34)
[2021-07-06 01:27] LABS: BUN/Creatinine Ratio 33 (6-26); Blood Urea Nitrogen 30 mg/dL (6-20); Calcium 9.1 mg/dL (8.6-10.3); Carbon Dioxide 25 mEq/L (23-29); Chloride 104 mEq/L (98-107); Glucose 146 mg/dL (70-105); Osmolality,Calculated 291 (280-300); Potassium 3.8 mEq/L (3.5-5.1); Sodium 136 mEq/L (136-145); eGFR For African Americans > 60 (> 60); eGFR For Non-African Americans > 60 (> 60)
[2021-07-06 01:42] LABS: Basophils # 0.1 K/mcL (0.0-0.2); Basophils % 0.6 %; Eosinophils # 0.2 K/mcL (0.0-0.6); Eosinophils % 2.3 %; Hematocrit 34.6 % (37.5-50.1); Hemoglobin 11.3 g/dL (12.9-16.9); Lymphocytes # 2.7 K/mcL (0.6-4.6); Lymphocytes % 27.9 %; Mean Corpuscular HGB Conc 32.7 g/dL (31.6-35.5); Mean Corpuscular Hemoglobin 27.2 pg (28.0-33.3); Mean Corpuscular Volume 83.4 fL (83.0-100.0); Mean Platelet Volume 8.8 fL (9.4-12.4); Monocytes # 0.6 K/mcL (0.0-1.3); Neutrophils # 6.1 K/mcL (1.6-8.9); Platelet Count 261 K/mcL (140-400); Red Blood Count 4.15 M/mcL (4.19-5.50); Segmented Neutrophils % 62.2 %; White Blood Count 9.8 K/mcL (4.3-11.1)
[2021-07-06] MEDS: Piperacillin/Tazobactam 3.375 GM in 0.9 % Sodium Chloride Mini Bag 100 ML IVPB SCH ×4 (02:08→23:46)
[2021-07-06] MEDS: *HR* Heparin 5,000 UNIT/ML VIAL SQ SCH ×2 (05:51→16:52)
[2021-07-06] MEDS: polyethylene glycoL 3350 17 GM POWD.PACK PO SCH (07:52)
[2021-07-06] MEDS: Insulin DETEMIR 100 UNIT/ML X5UNITS SUBQ SCH ×2 (07:52→21:01)
[2021-07-06] MEDS: Insulin LISPRO 300 UNITS/3 ML VIAL SUBQ SCH ×4 (07:52→20:55)
[2021-07-06] MEDS: Pregabalin 50 MG CAPSULE PO SCH ×2 (07:53→20:59)
[2021-07-06] MEDS: amLODIPine 5 MG TABLET PO SCH (07:53)
[2021-07-06] MEDS: Metoprolol XL (24 HR) Succ 50 MG TAB.ER.24H PO SCH (07:53)
[2021-07-06] MEDS: Budesonide/Formoterol 80/4.5 1 PUFF INH IH SCH ×2 (07:58→21:16)
[2021-07-07] MEDS: Acetaminophen 325 MG TABLET PO PRN ×2 (03:52→16:22)
[2021-07-07] MEDS: *HR* Heparin 5,000 UNIT/ML VIAL SQ SCH ×2 (05:17→16:23)
[2021-07-07] MEDS: Ringers Solution, Lactated 1,000 ML IVC SCH (07:20)
[2021-07-07] MEDS: Budesonide/Formoterol 80/4.5 1 PUFF INH IH SCH (08:13)
[2021-07-07] MEDS: Pregabalin 50 MG CAPSULE PO SCH (09:16)
[2021-07-07] MEDS: Piperacillin/Tazobactam 3.375 GM in 0.9 % Sodium Chloride Mini Bag 100 ML IVPB SCH ×2 (09:17→16:23)
[2021-07-07] MEDS: Metoprolol XL (24 HR) Succ 50 MG TAB.ER.24H PO SCH (09:17)
[2021-07-07] MEDS: amLODIPine 5 MG TABLET PO SCH (09:17)
[2021-07-07] MEDS: Insulin LISPRO 300 UNITS/3 ML VIAL SUBQ SCH ×3 (09:19→16:23)
[2021-07-07] MEDS: Insulin DETEMIR 100 UNIT/ML X5UNITS SUBQ SCH (09:19)
[2021-07-07] MEDS: polyethylene glycoL 3350 17 GM POWD.PACK PO SCH (09:20)
[2021-07-07 10:38] VITALS: BP 141/76; PULSE 73; TEMP 98.1; O2SAT 96
[2021-07-07 14:45] LABS: Influenza A PCR Negative (Negative); Influenza B PCR Negative (Negative); Resp. Syncytial Virus PCR Negative (Negative)
[2021-07-07 15:42] LABS: SARS-CoV-2 by PCR (In House) Negative (Negative)
== END 2021-07-07 16:50 | DRG 305 ==
LOC: 4WAOSI → SUATTDRO 12:27 → 3BNU 07-04 14:41
PROVIDERS: ADMIT Internal Medicine; ATTEND Hospitalist